=== PATIENT | female | born 1950 | race Caucasian/White ===

== ENCOUNTER → 2017-04-23 | Outpatient (CLI) | payer OTHER ==
[~2017-04-23] MED LIST: GADOBUTROL 10 ML VIAL IVP ONE
== END ==
LOC: FIMAGING 15:20
PROVIDERS: ATTEND Internal Medicine Hematology & Oncology
DX: C20 Malignant neoplasm of rectum (principal); D25.9 Leiomyoma of uterus, unspecified
CPT/HCPCS: 72197; A9585

== ENCOUNTER 2018-10-15 10:50 | Day surgery (SDC) | payer OTHER ==
[2018-10-15] MEDS ORDERED: ceFAZolin 2 GM/DEXTROSE 100 ML IV ONE (10:57)
[2018-10-15] MEDS ORDERED: LR 1,000 ML IV ONE (10:59)
[2018-10-15] MEDS ORDERED: MIDAZOLAM 2 MG/2 ML VIAL IVP ONE (12:52)
--- NOTE | 2018-10-15 12:55 | PDANEPAE ---
ANE History of Present Illness Lap vs open ventral hernia repair ANE Past Medical History - Cardiovascular History Hx Hypertension: No Hx Arrhythmias: No Hx Chest Pain: No Hx Coronary Artery / Peripheral Vascular Disease: No Hx CHF / Valvular Disease: No Hx Palpitations: No Cardiovascular History Comment: BP ELEV RECENTLY - NO MEDS - Pulmonary History Hx COPD: No Hx Asthma/Reactive Airway Disease: No Hx Recent Upper Respiratory Infection: No Hx Oxygen in Use at Home: No Hx Sleep Apnea: No Sleep Apnea Screening Result - Last Documented: Negative - Neurologic History Hx Cerebrovascular Accident: No Hx Seizures: No Hx Dementia: No - Endocrine History Hx Diabetes: No Hypothyroid: No Hyperthyroid: No Obesity: no - Renal History Hx Renal Disorders: No - Liver History Hx Hepatic Disorders: No - Neurological & Psychiatric Hx Hx Neurological and Psychiatric Disorders: No - Cancer History Hx Cancer: No Cancer History Comment: COLON CA - Congenital Disorder History Hx Congenital Disorders: No - GI History Hx Gastrointestinal Disorders: No - Other Health History Other Health History: NEG - Chronic Pain History Chronic Pain: No - Surgical History Prior Surgeries: 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 ANE Review of Systems Review of Systems: - Exercise capacity METS (RN): 5 METS ANE Patient History - Allergies Allergies/Adverse Reactions: No Known Allergies Allergy (Unverified 10/13/18 12:19) - Home Medications Home medications: home medication list seen and reviewed Home Medications: Herbals/Supplements -Info Only 10/13/18 [Last Taken 10/13/18] - NPO status NPO Status: no food or drink >8 hours NPO Since - Liquids (Date): 10/15/18 NPO Since - Liquids (Time): 09:00 NPO Since - Solids (Date): 10/14/18 NPO Since - Solids (Time): 19:00 - Smoking Hx Smoking Status: Never smoked Marijuana use: No - Alcohol Use Alcohol Use: Rarely - Family Anes Hx Family Anes Hx: none Family Hx Anesthesia Complications: NEG ANE Labs/Vital Signs - Vital Signs Blood Pressure: 175/76 Heart Rate: 74 Respiratory Rate: 16 O2 Sat (%): 97 Height: 161.29 cm Weight: 54.431 kg ANE Physical Exam - Airway Neck exam: decreased ROM Mallampati Score: Class 1 Mouth exam: normal dental/mouth exam - Pulmonary Pulmonary: no respiratory distress, no rales or rhonchi - Cardiovascular Cardiovascular: regular rate and rhythym, no murmur, rub, or gallop - ASA Status ASA Status: I ANE Anesthesia Plan Anesthesia Plan: general endotracheal anesthesia, GA w LMA Total IV Anesthesia: Yes
[2018-10-15] MEDS ORDERED: BUPIVACAINE 0.5% 30 ML SDV ONE (12:59)
--- NOTE | 2018-10-15 14:35 | PDHPUP ---
History & Physical Update H&P update statement: This history and physical update is based on an assessment of the patient which was completed after admission or registration (within 24 hours), but prior to the surgery/procedure. H&P update: H&P reviewed & patient examined, no change in patient's condition since H&P completed
[2018-10-15] MEDS ORDERED: fentaNYL 100 MCG/2 ML INJ ONE (15:44)
[2018-10-15] MEDS ORDERED: PROPOFOL/EMULSION 500 MG/50 ML BOTTLE IV ONE ×2 (15:45→16:06)
[2018-10-15] MEDS ORDERED: DEXAMETHASONE 4 MG/ML VIAL ONE ×2 (16:11)
[2018-10-15] MEDS ORDERED: NALOXONE HCL 0.4 MG/ML INJ IVP PRN (16:24)
[2018-10-15] MEDS ORDERED: MEPERIDINE 25 MG/0.5 ML AMP IVP PRN (16:24)
[2018-10-15] MEDS ORDERED: ACETAMINOPHEN 500 MG TAB PO PRN (16:24)
[2018-10-15] MEDS ORDERED: HYDROCODONE/APAP 5/325 TAB PO PRN (16:24)
[2018-10-15] MEDS ORDERED: ONDANSETRON 4 MG/2 ML VIAL IVP PRN (16:24)
[2018-10-15] MEDS ORDERED: oxyCODONE IR 5 MG TAB PO PRN (16:24)
[2018-10-15] MEDS ORDERED: LABETALOL HCL 5 MG/ML 20 ML MDV IVP PRN (16:24)
[2018-10-15] MEDS ORDERED: ALBUTEROL 3 ML DEYVIAL IH PRN (16:24)
[2018-10-15] MEDS ORDERED: fentaNYL 100 MCG/2 ML INJ IVP PRN (16:24)
[2018-10-15] MEDS ORDERED: PROMETHAZINE HCL 25 MG/ML INJ IVP PRN (16:24)
[2018-10-15] MEDS ORDERED: LR 500 ML IV PRN (16:24)
[2018-10-15] MEDS ORDERED: ONDANSETRON 4 MG/2 ML VIAL ONE (16:32)
[2018-10-15] MEDS ORDERED: KETOROLAC 30 MG/1 ML SDV ONE (16:32)
--- NOTE | 2018-10-15 16:36 | POSTOPPROG ---
Post Op Note Date of Operation: 10/15/18 Surgeon: Victorino Hickey Data Architect Manager: Regino Anesthesiologist: Rmasey Anesthesia: GET(General Endotracheal) Pre-op Diagnosis: Incisional hernia Post-op Diagnosis: same Indication: same Procedure: open incisional hernia repair Findings: 2cm defect Inf/Abcess present in the surg proc area at time of surgery?: No Depth: Organ Space EBL: Minimal
[2018-10-15 19:15] VITALS: BP 160/81
--- NOTE | 2018-10-16 11:37 | POSTANESTH ---
Post Anesthetic Evaluation Cardiovascular Status: Normal, Stable (Pt called at home 1135, 10/16/2018. No concerns with care) Respiratory Status: Normal, Stable Level of Consciousness/Mental Status: Can Participate in Eval Pain Control: Adequate, Prn Tx Ordered Nausea/Vomiting Control: Adequate, Prn Tx Ordered Complications Possibly Related to Anesthesia: None Noted (Dced to home.)
--- NOTE | 2018-10-19 13:05 | GOP ---
[f rep st] OPERATIVE REPORT DATE OF OPERATION: 10/15/2018 SURGEON: Victorino Hickey MD INDUSTRIAL WELDER: Fozia Lacy NP. ANESTHESIA: Tracy Mustafa MD. PREOPERATIVE DIAGNOSIS: Ventral incisional hernia. POSTOPERATIVE DIAGNOSIS: Ventral incisional hernia. PROCEDURE PERFORMED: Open ventral hernia repair with mesh. FINDINGS: The patient was found to have a 4 cm ventral hernia defect in the lower midline portion of a previous hysterectomy scar. DESCRIPTION OF PROCEDURE: The patient was taken to the operating room where she received satisfactor y general endotracheal anesthesia by Dr. Mustafa. She was placed in supine position, prepped and drap ed in the usual sterile fashion. A lower abdominal midline scar was excised. Dissection extended down to the fascia into the hernia d efect. This was dissected free from surrounding subcutaneous tissue. The sac was reduced. A subfas cial space was created above the peritoneum which was not actually opened. In this preperitoneal spa ce, a polypropylene patch was placed. It was secured around the periphery with interrupted 0 Ethibon d sutures. The hernia defect itself was then closed directly with interrupted 0 Ethibond figure-of-e ight sutures. Wounds were infiltrated with 0.5% Marcaine. The subcu was closed with 3-0 Vicryl in m ultiple layers and the skin with 4-0 Monocryl subcuticular stitch. All layers were infiltrated with 0.5% Marcaine. She tolerated the procedure well and was taken to recovery room in good condition. T here were no complications. /[id number]/MODL
== END 2018-10-15 19:10 | disposition home or self-care (01) ==
LOC: FSGY 10:50
PROVIDERS: ATTEND Surgery
PROC: 0WUF0JZ Supplement Abdominal Wall with Synthetic Substitute, Open Approach (ICD-10-PCS; principal; 2018-10-15 12:15)
DX: K43.2 Incisional hernia without obstruction or gangrene (principal); Z85.038 Personal history of other malignant neoplasm of large intestine
CPT/HCPCS: C1781; J0690; J1100; J1885; J2405; J2704; J3010